=== PATIENT | female | born 1985 | race Caucasian/White ===

== ENCOUNTER 2017-01-10 00:04 | Inpatient (IN) | payer OTHER ==
[~2017-01-10] VITALS: Ht 170.2 cm; Wt 87.5 kg
[~2017-01-10 00:04] MED LIST: CLINDAMYCIN300 M1 PO; ECO81 PO; HUMULIN R100 U/1 M1 SQ; KEFLEX750 MG PO; LAC PO; MEV20 PO; ZESTRIL5 MG PO; [UNRECOGNIZED DRUG - OTHER] SQ
[2017-01-10 01:26] LABS: PLATELET COUNT 249 x10^3mcL (130-400)
[2017-01-10 01:28] LABS: BASOPHIL % 2.1 % (0-2)
[2017-01-10 01:29] LABS: UA SPECIFIC GRAVITY 1.015 (1.005-1.035); microscopic required? YES; urine erythrocyte 3+ (NEGATIVE)
[2017-01-10 01:40] LABS: CALCIUM 9.1 mg/dL (8.5-10.1); CARBON DIOXIDE 24.3 mmol/L (21-32); CREATININE SERUM 1.4 mg/dL (0.6-1.0); POTASSIUM SERUM 4.2 mmol/L (3.5-5.1)
[2017-01-10 01:44] LABS: BILIRUBIN TOTAL 0.31 mg/dL (0.20-1.00); TOTAL PROTEIN, SERUM 7.3 g/dL (6.4-8.2)
[2017-01-10 01:46] LABS: ALBUMIN 3.2 g/dL (3.4-5.0)
[2017-01-10] MEDS ORDERED: LANTUS SOLOS100 U/M1 SQ (03:29)
[2017-01-10] MEDS ORDERED: LISINOPRIL2.5 MG PO (03:29)
[2017-01-10] MEDS ORDERED: JARDIANCE25 MG PO (03:30)
[2017-01-10 04:34] LABS: MAGNESIUM 2.2 mg/dL (1.8-2.4); PHOSPHOROUS 5.9 mg/dL (2.5-4.9)
[2017-01-10 04:38] VITALS: BP 110/69
[2017-01-10 04:39] LABS: T3 TOTAL 0.92 ng/mL
[2017-01-10 04:40] VITALS: BP 110/69
[2017-01-10 04:53] LABS: FREE T4 1.14 ng/dL (0.76-1.46); FREE THYROXINE INDEX 2.9 ug/dL (1.4-4.5); T4(THYROXINE) 7.9 ug/dL (4.7-13.3)
[2017-01-10 05:43] LABS: AMPHETAMINE QUAL UR NONE DETECTED (NEG <=1000)
[2017-01-10 10:12] VITALS: BP 94/53
[2017-01-10 13:23] VITALS: BP 103/59
[2017-01-10 17:11] VITALS: BP 99/63
[2017-01-10 21:27] VITALS: BP 102/64
[2017-01-11 05:55] VITALS: BP 129/81
[2017-01-11 06:22] LABS: BASOPHIL % 0.5 % (0-2); PLATELET COUNT 207 x10^3mcL (130-400); RED CELL DISTRIBUTION WIDTH 13.2 % (11.5-14.5)
[2017-01-11 06:36] LABS: CALCIUM 8.5 mg/dL (8.5-10.1); CARBON DIOXIDE 22.2 mmol/L (21-32); CREATININE SERUM 1.2 mg/dL (0.6-1.0); PHOSPHOROUS 4.2 mg/dL (2.5-4.9); POTASSIUM SERUM 4.2 mmol/L (3.5-5.1)
[2017-01-11 10:19] VITALS: BP 131/83
[2017-01-11] MEDS ORDERED: LEVAQUIN750 MG PO (12:20)
[2017-01-11] MEDS ORDERED: LAC PO (12:20)
[2017-01-11 12:23] VITALS: BP 131/83
[2017-01-11 13:48] VITALS: BP 144/93
== END 2017-01-11 15:30 | disposition home or self-care (01) | DRG 690 ==
LOC: ED 00:04 → DU 03:39
PROVIDERS: Emergency Medicine; ADMIT Family Medicine
DX: N12 Tubulo-interstitial nephritis, not specified as acute or chronic (principal); E44.0 Moderate protein-calorie malnutrition; D68.69 Other thrombophilia; N17.0 Acute kidney failure with tubular necrosis; E11.65 Type 2 diabetes mellitus with hyperglycemia; E86.0 Dehydration; E83.39 Other disorders of phosphorus metabolism; Z79.4 Long term (current) use of insulin; E27.8 Other specified disorders of adrenal gland; Z83.3 Family history of diabetes mellitus; Z82.49 Family history of ischemic heart disease and other diseases of the circulatory system; E78.2 Mixed hyperlipidemia; D64.9 Anemia, unspecified; E02 Subclinical iodine-deficiency hypothyroidism; E66.9 Obesity, unspecified; Z68.30 Body mass index [BMI] 30.0-30.9, adult
CPT/HCPCS: 82962; 83880; 84439; J0696; J1815; J1885; J2270; J2405; J7030; J8597; Q0092

== ENCOUNTER 2017-10-05 08:17 | Emergency (ER) | payer OTHER ==
[~2017-10-05] VITALS: Ht 170.2 cm; Wt 86.2 kg
[~2017-10-05 08:17] MED LIST changes: +JARDIANCE25 MG PO; +LANTUS SOLOS100 U/M1 SQ; +LEVAQUIN750 MG PO; +LISINOPRIL2.5 MG PO
[2017-10-05 08:43] VITALS: Ht 170.2 cm; Wt 86.2 kg
[2017-10-05 09:41] LABS: CALCIUM 9.1 mg/dL (8.5-10.1); CARBON DIOXIDE 26.7 mmol/L (21-32); CREATININE SERUM 1.7 mg/dL (0.6-1.0); POTASSIUM SERUM 4.4 mmol/L (3.5-5.1)
[2017-10-05 10:22] VITALS: BP 122/24
== END 2017-10-05 10:22 | disposition home or self-care (01) ==
LOC: ED 08:17
PROVIDERS: Emergency Medicine
PROC: 3E033NZ Introduction of Analgesics, Hypnotics, Sedatives into Peripheral Vein, Percutaneous Approach (ICD-10-PCS; principal; 2017-10-05)
DX: K52.9 Noninfective gastroenteritis and colitis, unspecified (principal)
CPT/HCPCS: J1885; J2550

== ENCOUNTER 2017-10-07 10:00 | Emergency (ER) | payer OTHER ==
[~2017-10-07] VITALS: Ht 170.2 cm; Wt 86.2 kg
[2017-10-07 10:09] VITALS: Ht 170.2 cm; Wt 86.2 kg
[2017-10-07 11:01] LABS: BASOPHIL % 0.4 % (0-2); PLATELET COUNT 328 x10^3mcL (130-400); RED CELL DISTRIBUTION WIDTH 13.4 % (11.5-14.5)
[2017-10-07] MEDS ORDERED: GLIPIZIDE10 M2 PO (11:24)
[2017-10-07] MEDS ORDERED: TOUJEO300 U/ML SC (11:24)
[2017-10-07] MEDS ORDERED: MASON NATURAL1000 IU PO (11:26)
[2017-10-07] MEDS ORDERED: NATURAL IRON65 MG PO (11:26)
[2017-10-07] MEDS ORDERED: TANZEUM50 MG SC (11:26)
[2017-10-07 11:36] LABS: CALCIUM 8.8 mg/dL (8.5-10.1); CARBON DIOXIDE 24.3 mmol/L (21-32); CREATININE SERUM 1.8 mg/dL (0.6-1.0); POTASSIUM SERUM 4.7 mmol/L (3.5-5.1)
[2017-10-07 11:41] LABS: BILIRUBIN TOTAL 0.4 mg/dL (0.20-1.00); MAGNESIUM 1.9 mg/dL (1.8-2.4); TOTAL PROTEIN, SERUM 7.3 g/dL (6.4-8.2)
[2017-10-07 11:45] LABS: ALBUMIN 2.7 g/dL (3.4-5.0)
[2017-10-07 15:11] VITALS: BP 157/97
== END 2017-10-07 15:11 | disposition home or self-care (01) ==
LOC: ED 10:00
PROVIDERS: Emergency Medicine
DX: E86.0 Dehydration (principal); R03.1 Nonspecific low blood-pressure reading; E11.9 Type 2 diabetes mellitus without complications
CPT/HCPCS: 82962; 83880; J7030; Q0092

== ENCOUNTER 2020-07-15 19:06 | Emergency (ER) | payer OTHER ==
[~2020-07-15] VITALS: Ht 167.6 cm; Wt 104.3 kg
[~2020-07-15 19:06] MED LIST changes: +GLIPIZIDE10 M2 PO; +MASON NATURAL1000 IU PO; +NATURAL IRON65 MG PO; +TANZEUM50 MG SC; +TOUJEO300 U/ML SC
[2020-07-15 23:45] VITALS: BP 130/70
== END 2020-07-15 21:34 | disposition home or self-care (01) ==
LOC: ED 19:06
DX: U07.1 COVID-19 (principal); J12.89 Other viral pneumonia; E11.9 Type 2 diabetes mellitus without complications
CPT/HCPCS: Q0162